=== PATIENT | male | born 1960 | race Caucasian/White ===

== ENCOUNTER 2022-12-12 01:15 | Outpatient (CLI) | payer BC, SELFPAY ==
--- NOTE | 2022-12-12 07:00 | DI.MRI_ITS ---
Exam(s) MR IAC BRAIN WO/W EXAM: MR IAC BRAIN WO/W CLINICAL HISTORY: asymmetrical sensorineaural hearing loss,H90.3. TECHNIQUE: Multiplanar multisequence MRI of the brain and internal auditory canals was performed. CONTRAST MATERIAL: IV Contrast: 15 mL of Dotarem contrast administered. COMPARISON: No exams were available for comparison FINDINGS: VENTRICLES AND EXTRA AXIAL SPACES: Normal in size and morphology for the patient's age. HEMORRHAGE: None. CEREBRAL PARENCHYMA: No focus of restricted diffusion to suggest acute infarct. No space-occupying le jacquie identified. There are multiple hyperintense foci seen on the FLAIR and T2 weighted images in the white matter most likely reflecting small vessel ischemic disease. MIDLINE SHIFT: None. BRAINSTEM/CEREBELLUM: Normal. CALVARIUM: Normal. ENHANCEMENT: No suspicious enhancement identified. VISUALIZED PARANASAL SINUSES/MASTOIDS: There is a mucous retention cyst or polyp in the right maxilla ry sinus. The remaining visualized paranasal sinuses are clear. CHITIMACHA OF JARA: Normal flow void. PITUITARY GLAND: Unremarkable. IAC/CP ANGLE: The internal auditory canals are within normal limits. The cerebellar pontine angles ar e unremarkable. No enhancing lesions are seen. Visualized portion of the facial nerves appear within normal limits. OTHER FINDINGS: None. IMPRESSION: 1. Age-related cerebral atrophy and small vessel ischemic disease. 2. No evidence of an intracranial mass or enhancing lesion. DATA REPOSITORY:
[2022-12-12 10:46] LABS: Estimated GFR 84.57 (mL/min/1.73m2)
[2022-12-12] MEDS: Gadoterate meglumine 20 ML SYRINGE 15 ML IVP (10:51)
[2022-12-12] MEDS: Normal Saline Flush 10 ML SYR IVP (10:51)
== END 2022-12-12 01:35 ==
LOC: DI 01:15
PROVIDERS: Registered Nurse Maternal Newborn; PCP Physician Assistant Medical; Visit Provider Otolaryngology
DX: H90.3 Sensorineural hearing loss, bilateral (principal)
CPT/HCPCS: 70553; 82565